=== PATIENT | female | born 1975 | race Caucasian/White ===

== ENCOUNTER 2018-08-23 23:30 | Emergency (ER) | payer MEDICAID, OTHER ==
[~2018-08-23] VITALS: Ht 165.1 cm; Wt 88.9 kg
[~2018-08-23 23:30] MED LIST: FOLIC ACID; VITAMINS
[2018-08-23 23:31] VITALS: BP 144/83
[2018-08-23] MEDS: DIPHENOXYLATE /ATROPINE 2.5 MG TAB PO ONE (23:53)
[2018-08-23 23:59] VITALS: BP 144/83
== END 2018-08-24 | disposition home or self-care (01) ==
LOC: MED 23:30
DX: B34.9 Viral infection, unspecified (principal); R19.7 Diarrhea, unspecified; M54.9 Dorsalgia, unspecified; N64.4 Mastodynia; Z79.899 Other long term (current) drug therapy
CPT/HCPCS: 99283

== ENCOUNTER 2019-04-05 02:18 | Emergency (ER) | payer MEDICAID, OTHER ==
[~2019-04-05] VITALS: Ht 162.6 cm; Wt 84.8 kg
[2019-04-05 02:28] VITALS: BP 133/80
--- NOTE | 2019-04-05 02:33 | NUR ---
PT AMBULATED TO BED 7.
--- NOTE | 2019-04-05 02:40 | NUR ---
43 YO F BIB SELF C/O POSSIBLE BUG BITE TO RIGHT POSTERIOR THIGH. PT STATES SHE SQUEEZED THE SITE AND IT OOZED GREEN PUS. SITE APPEARS RED, SLIGHTLY EDEMATOUS WITH BLACK CENTER. NO DRAINAGE OR BLEEDING NOTED AT THIS TIME. PT DENIES FEVER, NVD. PT IS ALSO C/O MIJARES. PMH-- DENIES
--- NOTE | 2019-04-05 03:30 | NUR ---
Patient appears to be resting comfortably in bed. Vital Signs within normal limits. Respirations even and unlabored.
--- NOTE | 2019-04-05 04:42 | NUR ---
DR. CLEMONS EVALUATING AT BEDSIDE.
[2019-04-05] MEDS ORDERED: KETOROLAC 60 MG/2 ML VIAL IM ONE (04:50)
[2019-04-05 05:36] VITALS: BP 127/79
--- NOTE | 2019-04-05 05:36 | NUR ---
Patient discharged with v/s stable. Written and verbal after care instructions given and explained. Patient alert, oriented and verbalized understanding of instructions. Ambulatory with steady gait. All questions addressed prior to discharge. ID band removed. Patient advised to follow up with PMD. Rx of KEFLEX, MOTRIN, PREDNISONE given. Patient educated on indication of medication including possible reaction and side effects. Opportunity to ask questions provided and answered.
== END 2019-04-05 05:36 | disposition home or self-care (01) ==
LOC: MED 02:18
DX: L02.31 Cutaneous abscess of buttock (principal); L03.317 Cellulitis of buttock; Z79.899 Other long term (current) drug therapy
CPT/HCPCS: 96372; 99283; J1885

== ENCOUNTER 2020-09-30 13:13 | Emergency (ER) | payer OTHER ==
[~2020-09-30] VITALS: Ht 160 cm; Wt 88.0 kg
[2020-09-30 13:34] VITALS: BP 134/82
[2020-09-30 17:49] VITALS: BP 134/82
--- NOTE | 2020-09-30 17:50 | NUR ---
Patient discharged with v/s stable. Written and verbal after care instructions given and explained. Patient alert, oriented and verbalized understanding of instructions. Ambulatory with steady gait. All questions addressed prior to discharge. ID band removed. Patient advised to follow up with PMD. Rx of Hydroxyzine 25mg given. Patient educated on indication of medication including possible reaction and side effects. Opportunity to ask questions provided and answered.
== END 2020-09-30 14:07 | disposition home or self-care (01) ==
LOC: MED 13:13
DX: F41.0 Panic disorder [episodic paroxysmal anxiety] (principal); Z79.899 Other long term (current) drug therapy
CPT/HCPCS: 99283

== ENCOUNTER 2021-07-13 10:15 | Emergency (ER) | payer OTHER ==
[~2021-07-13] VITALS: Ht 152.4 cm; Wt 91.6 kg
[2021-07-13 10:17] VITALS: BP 140/81
--- NOTE | 2021-07-13 10:23 | NUR ---
PT WAS TRIAGED AND RETURNED TO LOBBY. UNABLE TO PROVIDE URINE SAMPLE AT THIS TIME, GIVEN SAMPLE CUP.
--- NOTE | 2021-07-13 10:43 | NUR ---
PT AMBULATED TO BED 9 WITH EVEN AND STEADY GAIT. PT WAS CHANGED INTO GOWN.
--- NOTE | 2021-07-13 11:10 | NUR ---
45 y/o F BIB self from home c/o epigastric pain x 3 days. Patient A&Ox4, ambulatory, reports acute onset of pain that worsens after meals. Patient reports epigastric pain 6/10, "gas/bloating/constant," non-radiating pain. Patient states Pepto bismol without relief to symptoms. Denies nausea, vomiting, diarrhea, constipation, fever, chills, dysuria, back pain, headache, chest pain, SOB. Patient states last Pepto Bismol intake 3 days ago, has good appetite with food/fluids. Pt reports last bm this morning that is "black and tarry." Bowel sounds normoactive x 4 quadrants. Epigastric region soft/round/tender to palpation. Denies any other medications prior to arrival. UA collected. VSS; resiprations even/unlabored. PMH/Sx/Meds: C-sections NKA
[2021-07-13 11:12] LABS: BASOPHILS % (AUTO) 0.5 % (0.0-2.0); EOSINOPHILS # (AUTO) 0.2 K/uL (0-0.4); EOSINOPHILS % (AUTO) 1.9 % (0.0-4.0); HEMATOCRIT 38.7 % (36-48); HEMOGLOBIN 12.8 g/dL (12.0-16.0); LYMPHOCYTES # (AUTO) 2.9 K/uL (2.5-16.5); LYMPHOCYTES % (AUTO) 30.9 % (20.5-51.1); MEAN CORPUSCULAR HEMOGLOBIN 30 pg (27-31); MEAN CORPUSCULAR HGB CONC 33 g/dL (33-37); MEAN CORPUSCULAR VOLUME 89.9 fL (80-94); NEUTROPHILS # (AUTO) 5.4 K/uL (1.8-7.7); NEUTROPHILS % (AUTO) 56.7 % (42.2-75.2); PLATELET COUNT (AUTO) 408 K/uL (140-450); RED CELL DISTRIBUTION WIDTH 13.7 % (11.6-13.7); WHITE BLOOD COUNT (AUTO) 9.5 K/uL (4.8-10.8)
[2021-07-13 11:20] LABS: ANION GAP 13.3 (8-16); CARBON DIOXIDE 26.4 mmol/L (21-32); CREATININE 0.7 mg/dL (0.6-1.3); POTASSIUM 4.7 mmol/L (3.5-5.1)
--- NOTE | 2021-07-13 11:21 | NUR ---
DR ALANIS AT BEDSIDE EVALUATING PT
[2021-07-13 11:26] LABS: ALBUMIN 3.5 g/dL (3.4-5.0); TOTAL BILIRUBIN 0.2 mg/dL (0.0-1.0)
[2021-07-13] MEDS ORDERED: DICYCLOMINE HCL LIQUID 20 MG, ALUMINUM HYD/MAG/SIMETHICONE 30 ML, LIDOCAINE VISCOUS 2% ... PO ONE ×3 (11:30)
[2021-07-13] MEDS ORDERED: KETOROLAC 30 MG/ML VIAL IM ONE (11:30)
[2021-07-13] MEDS ORDERED: ALUMINUM HYD/MAG/SIMETHICONE 30 ML UDC ONE (11:34)
[2021-07-13] MEDS ORDERED: DICYCLOMINE HCL LIQUID 10 MG/5 ML UDC ONE (11:35)
--- NOTE | 2021-07-13 11:55 | NUR ---
ULTRASOUND AT BEDSIDE
[2021-07-13] MEDS ORDERED: MAG-27 PO (12:39)
[2021-07-13] MEDS ORDERED: NAPR-54 PO (12:39)
[2021-07-13 12:45] VITALS: BP 134/72
--- NOTE | 2021-07-13 12:48 | NUR ---
Patient discharged with v/s stable. Written and verbal after care instructions given and explained. Patient alert, oriented and verbalized understanding of instructions. Ambulatory with steady gait. All questions addressed prior to discharge. ID band removed. Patient advised to follow up with PMD. Rx of Mag Hydrox/Aluminum Hyd/Simeth, Naproxen given. Patient educated on indication of medication including possible reaction and side effects. Opportunity to ask questions provided and answered.
== END 2021-07-13 12:48 | disposition home or self-care (01) ==
LOC: MED 10:15
DX: K80.20 Calculus of gallbladder without cholecystitis without obstruction (principal); Z79.899 Other long term (current) drug therapy; Z98.890 Other specified postprocedural states
CPT/HCPCS: 36415; 76705; 80053; 81002; 81025; 83690; 85025; 96372; 99284; J1885; Q0092

== ENCOUNTER 2022-10-03 15:55 | Emergency (ER) | payer OTHER ==
[~2022-10-03] VITALS: Ht 167.6 cm; Wt 83.9 kg
[~2022-10-03 15:55] MED LIST changes: +MAG-27 PO; +NAPR-54 PO
[2022-10-03 16:10] VITALS: BP 141/81
[2022-10-03] MEDS ORDERED: DICYCLOMINE HCL LIQUID 20 MG, ALUMINUM HYD/MAG/SIMETHICONE 30 ML, LIDOCAINE VISCOUS 2% ... PO ONE ×3 (16:25)
[2022-10-03] MEDS ORDERED: METOCLOPRAMIDE 10 MG/2 ML INJ VIAL IM ONE (16:25)
[2022-10-03] MEDS ORDERED: ALUMINUM HYD/MAG/SIMETHICONE 30 ML UDC ONE (16:40)
[2022-10-03] MEDS ORDERED: DICYCLOMINE HCL LIQUID 10 MG/5 ML UDC ONE (16:40)
[2022-10-03] MEDS ORDERED: FAMO-92 PO (18:01)
== END 2022-10-03 18:10 | disposition home or self-care (01) ==
LOC: MED 15:55
DX: R10.13 Epigastric pain (principal)
CPT/HCPCS: 74018; 96372; 99283; J2765

== ENCOUNTER 2022-11-30 19:40 | Emergency (ER) | payer OTHER ==
[~2022-11-30] VITALS: Ht 152.4 cm; Wt 87.1 kg
[~2022-11-30 19:40] MED LIST changes: +FAMO-92 PO
[2022-11-30 19:48] VITALS: BP 135/75
--- NOTE | 2022-11-30 19:52 | NUR ---
PT TO BED 6
--- NOTE | 2022-11-30 20:33 | NUR ---
47YR OLD FEMALE BIB SELF C/O RASH L THUMB PAIN. 9/10 THROBBING PAIN LEVEL . +SWELLING TO L THUMB. DENIES KNOWN INJURY. RASH TO MENA HANDS UPPER ARMS ABD MENA THIGH. PT DENIES SOB OR CP. PT STATES HAVING ALLERGIES TO MULTIPLE ENIVORMENTAL THINGS. RESP EVEN AND UNLABORED. SKIN WARM AND DRY. NKDA NO MED HX
--- NOTE | 2022-11-30 20:36 | NUR ---
Dr. Frausto examining patient.
[2022-11-30] MEDS ORDERED: PRED20TA5 PO (20:41)
[2022-11-30] MEDS ORDERED: predniSONE 20 MG TAB ONE (20:53)
[2022-11-30] MEDS ORDERED: predniSONE 20 MG TAB PO ONE (20:55)
--- NOTE | 2022-11-30 20:55 | NUR ---
PT CLEARED FOR D/C. PROVIDED WITH D/C INSTRUCTIONS AND RX OF PREDNISONE. PT AMBULATORY TO PERSONAL VEHICLE
== END 2022-11-30 20:55 | disposition home or self-care (01) ==
LOC: MED 19:40
DX: M79.645 Pain in left finger(s) (principal); R21 Rash and other nonspecific skin eruption; E11.9 Type 2 diabetes mellitus without complications; Z79.4 Long term (current) use of insulin; Z79.899 Other long term (current) drug therapy
CPT/HCPCS: 73130; 99283; J7512; Q0092

== ENCOUNTER 2023-02-15 15:29 | Emergency (ER) | payer OTHER ==
[~2023-02-15] VITALS: Ht 157.5 cm; Wt 88.0 kg
[~2023-02-15 15:29] MED LIST changes: +PRED20TA5 PO
[2023-02-15 16:27] VITALS: BP 122/71
[2023-02-15 17:55] LABS: APPEARANCE,URINE CLEAR (CLEAR); BILIRUBIN,URINE NEGATIVE (NEGATIVE); BLOOD, URINE 1+ (NEGATIVE); COLOR,URINE YELLOW (YELLOW); LEUKOCYTE ESTERASE ,URINE NEGATIVE (NEGATIVE); NITRITE, URINE NEGATIVE (NEGATIVE); PH,URINE 6.5 (5.0-9.0); UGLUCOSE NEGATIVE (NEGATIVE)
[2023-02-15 18:06] LABS: RBC,URINE 0-5 /HPF (0-5)
--- NOTE | 2023-02-15 18:45 | NUR ---
PT. AMB. TO BED 11 WITH NO ACUTE DISTRESS.
--- NOTE | 2023-02-15 19:39 | NUR ---
MD Nolen at bedside examining pt.
[2023-02-15] MEDS ORDERED: IBUPROFEN 600 MG TAB PO ONE (20:05)
[2023-02-15] MEDS ORDERED: ACETAMINOPHEN EXTRA STRENGTH 500 MG TAB PO ONE (20:05)
[2023-02-15] MEDS ORDERED: IBUP-2213 PO (20:07)
[2023-02-15] MEDS ORDERED: ACET-10509 PO (20:07)
--- NOTE | 2023-02-15 20:13 | NUR ---
Pt discharged without discharge instruction paperwork, per pt request; pt gave verbal consent for discharge instructions.
[2023-02-15 20:26] VITALS: BP 125/76
== END 2023-02-15 20:13 | disposition home or self-care (01) ==
LOC: MED 15:29
DX: S16.1XXA Strain of muscle, fascia and tendon at neck level, initial encounter (principal); R51.9 Headache, unspecified; M62.838 Other muscle spasm; Z79.899 Other long term (current) drug therapy; X58.XXXA Exposure to other specified factors, initial encounter; Y93.89 Activity, other specified; Y92.89 Other specified places as the place of occurrence of the external cause; Y99.8 Other external cause status
CPT/HCPCS: 81001; 81025; 99283

== ENCOUNTER 2023-03-27 16:19 | Inpatient (IN) | payer OTHER ==
[~2023-03-27] VITALS: Ht 152.4 cm; Wt 80.7 kg
[~2023-03-27 16:19] MED LIST changes: +ACET-10509 PO; +IBUP-2213 PO
[2023-03-27 16:54] VITALS: BP 148/82; PULSE 78; RESP 18; TEMP 98; O2SAT 98
[2023-03-27] MEDS ORDERED: fentaNYL citrate 0.05 MG/ML - 50mL vial IV ONE (18:00)
[2023-03-27] MEDS ORDERED: PROPOFOL 200 MG/20 ML VIAL IV ONE (18:00)
[2023-03-27] MEDS ORDERED: GLYCOPYRROLATE 0.2 MG/ML VIAL ONE (18:00)
[2023-03-27] MEDS ORDERED: DESFLURANE 240 ML BTL INH ONE (18:00)
[2023-03-27] MEDS ORDERED: ONDANSETRON 4 MG/2 ML VIAL ONE (18:00)
[2023-03-27] MEDS ORDERED: HYDROmorphone PFS 2 MG/ML SYR ONE (18:00)
[2023-03-27] MEDS ORDERED: SUCCINYLCHOLINE CHLORIDE 200 MG/10 ML VIAL IVP ONE (18:00)
[2023-03-27] MEDS ORDERED: KETOROLAC 30 MG/ML VIAL ONE (18:00)
[2023-03-27] MEDS ORDERED: ROCURONIUM 50 MG/5 ML VIAL IV ONE (18:00)
[2023-03-27 18:42] LABS: BASOPHILS # (AUTO) 0.1 K/uL (0.00-0.22); BASOPHILS % (AUTO) 0.8 % (0.0-2.0); EOSINOPHILS # (AUTO) 0.2 K/uL (0-0.4); EOSINOPHILS % (AUTO) 1.4 % (0.0-4.0); HEMATOCRIT 35.7 % (36-48); HEMOGLOBIN 12.1 g/dL (12.0-16.0); LYMPHOCYTES # (AUTO) 4.1 K/uL (2.5-16.5); LYMPHOCYTES % (AUTO) 29.1 % (20.5-51.1); MEAN CORPUSCULAR HEMOGLOBIN 29 pg (27-31); MEAN CORPUSCULAR HGB CONC 34 g/dL (33-37); MEAN CORPUSCULAR VOLUME 86.4 fL (80-94); MONOCYTES # (AUTO) 1.1 K/uL (0.8-1.0); MONOCYTES % (AUTO) 7.7 % (1.7-9.3); NEUTROPHILS # (AUTO) 8.5 K/uL (1.8-7.7); PLATELET COUNT (AUTO) 397 K/uL (140-450); RED BLOOD CELL COUNT(AUTO) 4.13 MIL/uL (4.20-5.40); RED CELL DISTRIBUTION WIDTH 13.3 % (11.6-13.7); WHITE BLOOD COUNT (AUTO) 13.9 K/uL (4.8-10.8)
[2023-03-27 18:58] LABS: ALBUMIN 3.7 g/dL (3.4-5.0); ANION GAP 11.3 (8-16); CARBON DIOXIDE 29.9 mmol/L (21-32); CREATININE 0.7 mg/dL (0.6-1.3); POTASSIUM 4.2 mmol/L (3.5-5.1); TOTAL BILIRUBIN 0.2 mg/dL (0.0-1.0)
--- NOTE | 2023-03-27 19:14 | NUR ---
PT TO 3
[2023-03-27] MEDS ORDERED: KETOROLAC 60 MG/2 ML VIAL IM ONE (20:05)
--- NOTE | 2023-03-27 20:10 | NUR ---
PT WENT TO THE RESTROOM.
--- NOTE | 2023-03-27 20:14 | NUR ---
PT WENT TO CT
--- NOTE | 2023-03-27 21:26 | NUR ---
[employer] UNDERWRITER FROM PT ENSURANCE CALLED AND FORMATION WAS PROVIDED.
[2023-03-27] MEDS ORDERED: cefTRIAXone 2,000 MG in DEXTROSE 5% 100 ML IV ONE (22:00)
[2023-03-27] MEDS: NACL 0.9% 1,000 ML IV SCH (22:10)
[2023-03-27] MEDS ORDERED: LORazepam 2 MG/ML VIAL IVP PRN (22:10)
[2023-03-27] MEDS ORDERED: MORPHINE SULFATE 2 MG/ML SYR IVP PRN (22:10)
[2023-03-27 23:11] LABS: PROTHROMBIN TIME 10.3 secs (10.8-13.4)
[2023-03-27] MEDS ORDERED: cefTRIAXone 1,000 MG VIAL ONE (23:19)
[2023-03-27] MEDS ORDERED: cefTRIAXone 2,000 MG VIAL ONE (23:24)
[2023-03-27 23:35] VITALS: BP 118/60; PULSE 67; RESP 18; TEMP 98.3; O2SAT 97
--- NOTE | 2023-03-27 23:35 | NUR ---
received pt from er / wheelchair , aaox4 , denies pain at this time , iv site intact and patent , walks to bed , further admission assessment will be done , ensure safety at all time , reminds npo , will cont. to monitor .
--- NOTE | 2023-03-28 00:21 | NUR ---
Patient will be admitted to care of [facility]. Admited to [facility]. Will go to [id number]. Belongings list completed. Report to REGGIE Salvador.
[2023-03-28 04:00] VITALS: BP 115/60; PULSE 68; RESP 18; TEMP 98.7; O2SAT 98
--- NOTE | 2023-03-28 04:00 | NUR ---
sleeping , chest rise and fall equally .call light within reach .
[2023-03-28] MEDS: metroNIDAZOLE 500 MG/NS PREMIX 100 ML IV SCH ×3 (05:28→23:19)
--- NOTE | 2023-03-28 06:00 | NUR ---
rounds , no complain made , call light within reach .
--- NOTE | 2023-03-28 07:39 | NUR ---
endorsed pt for cont. of care .
[2023-03-28 08:00] VITALS: BP 113/65; PULSE 67; RESP 17; RESP 18; TEMP 97.6; O2SAT 98
[2023-03-28] MEDS: NACL 0.9% 1,000 ML IV SCH (08:10)
[2023-03-28 08:42] LABS: BASOPHILS # (AUTO) 0.2 K/uL (0.00-0.22); BASOPHILS % (AUTO) 1.2 % (0.0-2.0); EOSINOPHILS # (AUTO) 0.2 K/uL (0-0.4); EOSINOPHILS % (AUTO) 1.9 % (0.0-4.0); HEMATOCRIT 33.4 % (36-48); HEMOGLOBIN 11.5 g/dL (12.0-16.0); LYMPHOCYTES # (AUTO) 4.5 K/uL (2.5-16.5); LYMPHOCYTES % (AUTO) 35.1 % (20.5-51.1); MEAN CORPUSCULAR HEMOGLOBIN 30 pg (27-31); MEAN CORPUSCULAR HGB CONC 35 g/dL (33-37); MEAN CORPUSCULAR VOLUME 85.7 fL (80-94); MONOCYTES # (AUTO) 0.9 K/uL (0.8-1.0); MONOCYTES % (AUTO) 7.2 % (1.7-9.3); NEUTROPHILS % (AUTO) 54.6 % (42.2-75.2); PLATELET COUNT (AUTO) 372 K/uL (140-450); RED BLOOD CELL COUNT(AUTO) 3.89 MIL/uL (4.20-5.40); RED CELL DISTRIBUTION WIDTH 13.2 % (11.6-13.7); WHITE BLOOD COUNT (AUTO) 12.9 K/uL (4.8-10.8)
[2023-03-28] MEDS ORDERED: NON-FORMULARY ITEM (Famotidine* (Pepcid*) 40 MG) PO SCH (09:00)
[2023-03-28 09:07] LABS: ALBUMIN 3.2 g/dL (3.4-5.0); ANION GAP 11.5 (8-16); CARBON DIOXIDE 29.4 mmol/L (21-32); CREATININE 0.7 mg/dL (0.6-1.3); POTASSIUM 3.9 mmol/L (3.5-5.1); TOTAL BILIRUBIN 0.2 mg/dL (0.0-1.0)
--- NOTE | 2023-03-28 09:22 | NUR ---
PATIENT HAS BEEN SCREENED AND CATEGORIZED LOW NUTRITION RISK. PATIENT WILL BE SEEN WITHIN 7 DAYS OF ADMISSION. 03/27/23-04/03/[address]
[2023-03-28] MEDS: FAMOTIDINE 20 MG TAB PO SCH (12:00)
[2023-03-28] MEDS ORDERED: BUPIVACAINE-MPF 0.25% 30 ML VIAL INJ ONE (16:20)
[2023-03-28] MEDS ORDERED: LIDOCAINE/EPI MPF 1%1:200000 30 ML VIAL INJ ONE (16:20)
--- NOTE | 2023-03-28 17:30 | NUR ---
PT PICKED UP BY OR. URINE SAMPLE COLLECTED FOR TESTING. HIDA SCAN CANCELLED PER MD ORDERS. PT STABLE UPON TRANSFER (VIA GURNEY). NO FURTHER NEEDS ARE TO BE MET AT THIS TIME.
[2023-03-28] MEDS ORDERED: ONDANSETRON 4 MG/2 ML VIAL IVP PRN (17:35)
[2023-03-28] MEDS ORDERED: fentaNYL citrate 0.05 MG/ML VIAL ONE (18:24)
[2023-03-28] MEDS ORDERED: PROPOFOL 200 MG/20 ML VIAL IV ONE (18:39)
[2023-03-28] MEDS ORDERED: ROCURONIUM 50 MG/5 ML VIAL IV ONE (18:39)
[2023-03-28] MEDS ORDERED: SUCCINYLCHOLINE CHLORIDE 200 MG/10 ML VIAL IVP ONE (18:39)
[2023-03-28] MEDS ORDERED: KETOROLAC 30 MG/ML VIAL ONE (18:39)
[2023-03-28] MEDS ORDERED: ONDANSETRON 4 MG/2 ML VIAL ONE (18:39)
[2023-03-28] MEDS ORDERED: HYDROmorphone PFS 2 MG/ML SYR ONE (18:40)
[2023-03-28] MEDS ORDERED: NEOSTIGMINE 1:1000 10 MG/10 ML VIAL ONE (19:32)
[2023-03-28] MEDS ORDERED: GLYCOPYRROLATE 0.2 MG/ML VIAL ONE ×2 (19:33)
[2023-03-28] MEDS: HYDROmorphone 1 MG/ML AMP IVP PRN ×2 (19:58→20:08)
[2023-03-28 20:00] VITALS: PULSE 78
[2023-03-28 20:40] VITALS: BP 121/69; PULSE 78; RESP 18; TEMP 97; O2SAT 92
--- NOTE | 2023-03-28 20:40 | NUR ---
PT RETURNED FROM SURGERY ON AWAKE AND ALERT. PT ABLE TO VERBALIZED NEEDS. VITAL SIGNS CHECKED: B/P121/69; P78; T97.0; O2 SAT92% ROOM AIR; R17. INCISION OF SURGERY ARE CLEAN AND DRY, OPEN TO THE AIR. NO NOTED ANY REDNESS OR SWELLING.
[2023-03-28] MEDS: ONDANSETRON 4 MG/2 ML VIAL IVP PRN (21:56)
--- NOTE | 2023-03-28 21:56 | NUR ---
PT COMPLAINTS OF NAUSEA, PT NOTED GAGGING. ZOFRAN ADMINISTERED ORDERED.
[2023-03-28] MEDS: HYDROmorphone PFS 2 MG/ML SYR IVP PRN (22:00)
--- NOTE | 2023-03-28 22:00 | NUR ---
PT COMPLAINTS OF SEVERE PAIN ON ABDOMEN OF SURGERY SITES. DILAUDID 2MG ADMINISTERED ORDERED.
--- NOTE | 2023-03-28 23:00 | NUR ---
REASSESSMENT OF PAIN, PT DENIES ABDOMINAL PAIN.
--- NOTE | 2023-03-28 23:15 | NUR ---
PT COMPLAINTS OF LEFT CHEST PAIN. PT ALSO COMPLAINTS OF DIZZINESS AND BOTH EYES PAIN WHEN SEES LIGHT. COOLING MEASURES ON FOREHEAD GIVEN. REPORTED TO DR. REYNOLDS.
[2023-03-28] MEDS ORDERED: cefTRIAXone 1,000 MG VIAL ONE (23:39)
--- NOTE | 2023-03-28 23:44 | NUR ---
PT IS AGITATED AND VERBALIZED OF ANXIETY AFTER SURGERY, ATIVAN ADMINISTERED ORDERED.
--- NOTE | 2023-03-29 00:10 | NUR ---
RECEIVED ORDER FROM DR. REYNOLDS TO DO ECG AND TROPONIN LEVEL. ORDER CARRY OUT.
--- NOTE | 2023-03-29 01:05 | NUR ---
PT IS SLEEPING WELL, VITALS CHECKED = BP105/60; P88; R16; T96.5; O2 SAT98%. NO SOB OR DISTRESS, NO FACIAL GRIMACING.
[2023-03-29 04:00] VITALS: BP 130/82; PULSE 78; RESP 18; TEMP 96.5; O2SAT 98
[2023-03-29] MEDS: NACL 0.9% 1,000 ML IV SCH ×3 (04:10→14:10)
[2023-03-29] MEDS: metroNIDAZOLE 500 MG/NS PREMIX 100 ML IV SCH ×2 (05:01→12:36)
--- NOTE | 2023-03-29 07:05 | NUR ---
receive the patient from the shift production associate constantin Ricci in rm [id number] aox4 with admitting diagnosis cholecystitis afebrile , with iv on right antecubital running normal saline at 100 mls/hr . iv site patent and intact. no sign and symptoms of redness , infiltration status post laparoscopic cholecystectomy bola 3 . will continue to have antibiotic therapy . will continue to monitor
[2023-03-29 07:06] LABS: ANION GAP 12.2 (8-16); CARBON DIOXIDE 27.8 mmol/L (21-32); CREATININE 0.6 mg/dL (0.6-1.3); TOTAL BILIRUBIN 1.5 mg/dL (0.0-1.0)
[2023-03-29 07:12] LABS: BASOPHILS % (AUTO) 0.2 % (0.0-2.0); EOSINOPHILS % (AUTO) 0.1 % (0.0-4.0); HEMATOCRIT 34.9 % (36-48); HEMOGLOBIN 11.7 g/dL (12.0-16.0); LYMPHOCYTES # (AUTO) 1.5 K/uL (2.5-16.5); LYMPHOCYTES % (AUTO) 12.3 % (20.5-51.1); MEAN CORPUSCULAR HEMOGLOBIN 30 pg (27-31); MEAN CORPUSCULAR HGB CONC 34 g/dL (33-37); MEAN CORPUSCULAR VOLUME 88.4 fL (80-94); MONOCYTES % (AUTO) 8.1 % (1.7-9.3); NEUTROPHILS # (AUTO) 9.9 K/uL (1.8-7.7); NEUTROPHILS % (AUTO) 79.3 % (42.2-75.2); PLATELET COUNT (AUTO) 361 K/uL (140-450); RED BLOOD CELL COUNT(AUTO) 3.94 MIL/uL (4.20-5.40); RED CELL DISTRIBUTION WIDTH 13.3 % (11.6-13.7); WHITE BLOOD COUNT (AUTO) 12.5 K/uL (4.8-10.8)
[2023-03-29 07:25] LABS: ALBUMIN 3.2 g/dL (3.4-5.0)
[2023-03-29 07:50] VITALS: PULSE 68; RESP 20; O2SAT 99
[2023-03-29 07:52] VITALS: PULSE 68; RESP 20; O2SAT 99
[2023-03-29 08:00] VITALS: BP 136/76; PULSE 73; RESP 18; TEMP 97.3; O2SAT 100
--- NOTE | 2023-03-29 08:15 | NUR ---
and 10 y/o son visited the patient . was allowed by supervisor melt house
[2023-03-29] MEDS: FAMOTIDINE 20 MG TAB PO SCH (08:40)
[2023-03-29] MEDS: HYDROmorphone PFS 2 MG/ML SYR IVP PRN (12:36)
[2023-03-29 16:00] VITALS: BP 142/81; PULSE 74; RESP 18; TEMP 97.1; O2SAT 98
[2023-03-29] MEDS: ONDANSETRON 4 MG/2 ML VIAL IVP PRN (16:19)
--- NOTE | 2023-03-29 19:30 | NUR ---
RECEIVED REPORT FROM DAY SHIFT NURSE BRIAN FOR CONTINUITY OF CARE. PATIENT IS A&O X4. PATIENT IS ON ROOM AIR, BREATHING IS NORMAL WITH SYMMETRICAL RISE AND FALL OF CHEST. IV IS A 20G RAC; RUNNING NS 100. PATIENT IS SITTING IN HIGH-FOWLERS POSITION. BED IS IN LOWEST POSITION, WHEELS LOCKED CALL LIGHT IN PLACE. WILL CONTINUE TO OBSERVE PATIENT.
[2023-03-29 20:00] VITALS: BP 136/79; PULSE 75; RESP 20; TEMP 98; O2SAT 98
--- NOTE | 2023-03-29 20:30 | NUR ---
PATIENT CALLED AND STATED HER IV WAS LEAKING. CHECKED PATIENT'S IV. IV HAD COME OUT OF PATIENT'S ARM. STOPPED IV, DRIED PATIENT'S ARM WITH SOME GAUZE, AND PLACED GAUZE OVER SITE WERE IV WAS. INFORMED PATIENT THAT WE WILL NEED TO PUT A NEW IV IN HER. PATIENT ACKNOWLEDGED UNDERSTANDING.
[2023-03-29] MEDS: HYDROcodone/APAP 5/325 MG 1 TAB TAB PO PRN (22:06)
--- NOTE | 2023-03-29 23:30 | NUR ---
PATIENT CALLED AND REPORTED 8/10 PAIN. CHECKED PATIENT'S VITALS AND CHART AND SAW NORCO WAS APPROPRIATE TO ADMINISTER. MEDICATION WAS SUCCESSFULLY ADMINISTERED WITH NO ISSUE WITH SWALLOWING. NEW IV WAS SUCCESSFULLY PLACE BY NESHA MURILLO AT 2250. NEW IV IS 20G RAC. ADMINISTERED 2210 IVPB TO PATIENT. MEDICATION ADMINISTERED SUCCESSFULLY WITH NO ISSUE WITH IV. WENT INTO PATIENT'S ROOM TO REASSESS PATIENT'S PAIN AT 2328. PATIENT WAS SLEEPING. BREATHING WAS NORMAL WITH SYMMETRICAL RISE AND FALL OF CHEST. WILL CONTINUE TO OBSERVE PATIENT.
[2023-03-30] MEDS: NACL 0.9% 1,000 ML IV SCH ×2 (00:10→01:33)
--- NOTE | 2023-03-30 01:30 | NUR ---
LOOKED IN ON PATIENT. PATIENT WAS SLEEPING, BREATHING WAS NORMAL WITH SYMMETRICAL RISE AND FALL OF CHEST. IV IS RUNNING. WILL CONTINUE TO OBSERVE PATIENT.
[2023-03-30 04:00] VITALS: BP 134/80; PULSE 76; RESP 18; TEMP 97.2; O2SAT 99
--- NOTE | 2023-03-30 05:00 | NUR ---
LOOKED IN ON PATIENT. PATIENT WAS SLEEPING, BREATHING WAS NORMAL WITH SYMMETRICAL RISE AND FALL OF CHEST. IV IS RUNNING. WILL CONTINUE TO OBSERVE PATIENT.
[2023-03-30 06:36] LABS: BASOPHILS # (AUTO) 0.1 K/uL (0.00-0.22); BASOPHILS % (AUTO) 0.5 % (0.0-2.0); EOSINOPHILS # (AUTO) 0.1 K/uL (0-0.4); EOSINOPHILS % (AUTO) 0.9 % (0.0-4.0); HEMOGLOBIN 11.4 g/dL (12.0-16.0); LYMPHOCYTES # (AUTO) 3.3 K/uL (2.5-16.5); LYMPHOCYTES % (AUTO) 28.1 % (20.5-51.1); MEAN CORPUSCULAR HEMOGLOBIN 30 pg (27-31); MEAN CORPUSCULAR HGB CONC 34 g/dL (33-37); MEAN CORPUSCULAR VOLUME 88.2 fL (80-94); MONOCYTES % (AUTO) 8.7 % (1.7-9.3); NEUTROPHILS # (AUTO) 7.2 K/uL (1.8-7.7); NEUTROPHILS % (AUTO) 61.8 % (42.2-75.2); PLATELET COUNT (AUTO) 351 K/uL (140-450); RED BLOOD CELL COUNT(AUTO) 3.85 MIL/uL (4.20-5.40); RED CELL DISTRIBUTION WIDTH 13.4 % (11.6-13.7); WHITE BLOOD COUNT (AUTO) 11.6 K/uL (4.8-10.8)
[2023-03-30 06:49] LABS: ANION GAP 10.3 (8-16); CARBON DIOXIDE 30.2 mmol/L (21-32); CREATININE 0.6 mg/dL (0.6-1.3); POTASSIUM 3.5 mmol/L (3.5-5.1); TOTAL BILIRUBIN 0.3 mg/dL (0.0-1.0)
[2023-03-30 07:37] VITALS: PULSE 75; RESP 19; O2SAT 99
[2023-03-30 07:39] VITALS: PULSE 68; RESP 19; O2SAT 99
--- NOTE | 2023-03-30 07:50 | NUR ---
ENDORSED TO DAY SHIFT NURSE BRIAN FOR CONTINUITY OF CARE. PATIENT IS STABLE.
[2023-03-30] MEDS ORDERED: ACETAMINOPHEN 325 MG TAB PO PRN (07:55)
[2023-03-30] MEDS ORDERED: IBUPROFEN 800 MG TAB PO PRN (07:55)
[2023-03-30 08:00] VITALS: BP 130/79; PULSE 76; RESP 18; TEMP 98.4; O2SAT 96
[2023-03-30] MEDS ORDERED: LIDOCAINE 5% 1 EA PATCH TP SCH (09:00)
[2023-03-30] MEDS ORDERED: ENOXAPARIN 40 MG/0.4 ML SYR SUBQ SCH ×2 (09:00)
[2023-03-30] MEDS: CYCLOBENZAPRINE 10 MG TAB PO SCH ×3 (09:25→16:37)
[2023-03-30] MEDS: FAMOTIDINE 20 MG TAB PO SCH (09:27)
[2023-03-30 16:00] VITALS: BP 135/85; PULSE 80; RESP 18; TEMP 98.4; O2SAT 98
[2023-03-30] MEDS: HYDROcodone/APAP 5/325 MG 1 TAB TAB PO PRN (16:38)
[2023-03-30] MEDS ORDERED: MECLIZINE 25 MG TAB PO PRN (17:30)
[2023-03-30] MEDS ORDERED: MECL-231 PO (17:34)
[2023-03-30] MEDS ORDERED: FAMO20TA13 PO (17:34)
[2023-03-30] MEDS ORDERED: IBUP-2217 PO (17:34)
[2023-03-30] MEDS ORDERED: ACET-9525 PO ×2 (17:34→18:23)
[2023-03-30] MEDS ORDERED: CYCL-657 PO (17:34)
[2023-03-30 18:54] VITALS: BP 140/90; PULSE 68; RESP 20; TEMP 98
[2023-03-30] MEDS ORDERED: HYDR-5191 PO (19:36)
== END 2023-03-30 19:40 | disposition home or self-care (01) | DRG 263 ==
LOC: MED 16:19 → MMU 22:28 → OBSVTOIN 22:28 → MTU 23:28
PROVIDERS: ADMIT Student in an Organized Health Care Education/Training Program; ATTEND Student in an Organized Health Care Education/Training Program
PROC: 0FT44ZZ Resection of Gallbladder, Percutaneous Endoscopic Approach (ICD-10-PCS; principal; 2023-03-28 17:30)
DX: K80.00 Calculus of gallbladder with acute cholecystitis without obstruction (principal); E44.1 Mild protein-calorie malnutrition; R16.0 Hepatomegaly, not elsewhere classified; E66.9 Obesity, unspecified; Z71.3 Dietary counseling and surveillance; Z79.899 Other long term (current) drug therapy; Z90.710 Acquired absence of both cervix and uterus; Z79.1 Long term (current) use of non-steroidal anti-inflammatories (NSAID); Z68.34 Body mass index [BMI] 34.0-34.9, adult
CPT/HCPCS: 36415; 76705; 80053; 81025; 82374; 83690; 84484; 85025; 85610; 86886; 86900; 86901; 87081; 88304; 93005; 96365; 96372; 99285; J0330; J0696; J1170; J1650; J1885; J2001; J2060; J2405; J2704; J2710; J3010; J3490; J7030; J7060; J7120; J8597; Q0092

== ENCOUNTER 2023-06-24 00:15 | Emergency (ER) | payer OTHER ==
[~2023-06-24] VITALS: Ht 152.4 cm; Wt 81.6 kg
[~2023-06-24 00:15] MED LIST changes: -ACET-10509 PO; +CYCL-657 PO; -FAMO-92 PO; +FAMO20TA13 PO; -FOLIC ACID; +HYDR-5191 PO; -IBUP-2213 PO; +IBUP-2217 PO; -MAG-27 PO; +MECL-231 PO; -NAPR-54 PO; -PRED20TA5 PO; -VITAMINS
[2023-06-24 00:20] VITALS: BP 131/81; PULSE 74; RESP 16; TEMP 98; O2SAT 100
[2023-06-24 00:58] LABS: APPEARANCE,URINE CLEAR (CLEAR); BILIRUBIN,URINE NEGATIVE (NEGATIVE); BLOOD, URINE 2+ (NEGATIVE); COLOR,URINE YELLOW (YELLOW); LEUKOCYTE ESTERASE ,URINE TRACE (NEGATIVE); NITRITE, URINE NEGATIVE (NEGATIVE); PROTEIN,URINE NEGATIVE (NEGATIVE); UGLUCOSE NEGATIVE (NEGATIVE); UROBILINOGEN,URINE 0.2 EU/dL (0.2 - 1)
[2023-06-24 01:10] LABS: BACTERIA,URINE 10-30 (MOD) /HPF (None Seen); MUCUS,URINE 1+ /LPF (None Seen); SQUAMOUS EPITHELIAL CELL,UR 4-10 (MOD) /LPF (0-3 (FEW))
[2023-06-24 01:22] LABS: ALBUMIN 3.4 g/dL (3.4-5.0); ANION GAP 11.1 (8-16); CALCIUM 8.9 mg/dL (8.5-10.1); CARBON DIOXIDE 28.6 mmol/L (21-32); CREATININE 0.7 mg/dL (0.6-1.3); POTASSIUM 3.7 mmol/L (3.5-5.1); TOTAL BILIRUBIN 0.1 mg/dL (0.0-1.0); TOTAL PROTEIN, SERUM 7.6 g/dL (6.4-8.2)
[2023-06-24] MEDS ORDERED: KETOROLAC 30 MG/ML VIAL IVP ONE (01:30)
[2023-06-24 01:41] LABS: BASOPHILS # (AUTO) 0.1 K/uL (0.00-0.22); BASOPHILS % (AUTO) 0.7 % (0.0-2.0); EOSINOPHILS # (AUTO) 0.2 K/uL (0-0.4); EOSINOPHILS % (AUTO) 1.4 % (0.0-4.0); HEMATOCRIT 36.1 % (36-48); HEMOGLOBIN 11.8 g/dL (12.0-16.0); LYMPHOCYTES # (AUTO) 5.8 K/uL (2.5-16.5); LYMPHOCYTES % (AUTO) 39.4 % (20.5-51.1); MEAN CORPUSCULAR HEMOGLOBIN 29 pg (27-31); MEAN CORPUSCULAR HGB CONC 33 g/dL (33-37); MEAN CORPUSCULAR VOLUME 89.4 fL (80-94); MONOCYTES # (AUTO) 1.1 K/uL (0.8-1.0); MONOCYTES % (AUTO) 7.7 % (1.7-9.3); NEUTROPHILS # (AUTO) 7.4 K/uL (1.8-7.7); NEUTROPHILS % (AUTO) 50.8 % (42.2-75.2); PLATELET COUNT (AUTO) 401 K/uL (140-450); RED BLOOD CELL COUNT(AUTO) 4.04 MIL/uL (4.20-5.40); RED CELL DISTRIBUTION WIDTH 13.3 % (11.6-13.7); WHITE BLOOD COUNT (AUTO) 14.7 K/uL (4.8-10.8)
[2023-06-24 04:15] VITALS: O2SAT 100
[2023-06-24 06:06] VITALS: BP 131/81; PULSE 74; RESP 16; TEMP 98; O2SAT 100
[2023-06-24] MEDS ORDERED: IBUP-2213 PO (06:19)
[2023-06-24] MEDS ORDERED: CEPH-588 PO (06:19)
== END 2023-06-24 06:32 | disposition home or self-care (01) ==
LOC: MED 00:15
DX: N39.0 Urinary tract infection, site not specified (principal); R11.2 Nausea with vomiting, unspecified; Z90.49 Acquired absence of other specified parts of digestive tract; Z79.899 Other long term (current) drug therapy; Z98.890 Other specified postprocedural states
CPT/HCPCS: 36415; 74177; 80053; 81001; 81025; 83690; 85025; 87086; 96374; 99285; J1885; Q9967

== ENCOUNTER 2023-08-12 14:43 | Emergency (ER) | payer OTHER ==
[~2023-08-12] VITALS: Ht 152.4 cm; Wt 87.1 kg
[~2023-08-12 14:43] MED LIST changes: +CEPH-588 PO; +IBUP-2213 PO
[2023-08-12 14:50] VITALS: BP 133/62; PULSE 81; RESP 15; TEMP 97.9
[2023-08-12 16:24] LABS: BASOPHILS # (AUTO) 0.1 K/uL (0.00-0.22); BASOPHILS % (AUTO) 0.6 % (0.0-2.0); EOSINOPHILS # (AUTO) 0.1 K/uL (0-0.4); EOSINOPHILS % (AUTO) 1.1 % (0.0-4.0); HEMOGLOBIN 12.5 g/dL (12.0-16.0); LYMPHOCYTES # (AUTO) 4.3 K/uL (2.5-16.5); LYMPHOCYTES % (AUTO) 34.7 % (20.5-51.1); MEAN CORPUSCULAR HEMOGLOBIN 30 pg (27-31); MEAN CORPUSCULAR HGB CONC 33 g/dL (33-37); MEAN CORPUSCULAR VOLUME 89.5 fL (80-94); MONOCYTES % (AUTO) 8.3 % (1.7-9.3); NEUTROPHILS # (AUTO) 6.9 K/uL (1.8-7.7); NEUTROPHILS % (AUTO) 55.3 % (42.2-75.2); PLATELET COUNT (AUTO) 434 K/uL (140-450); RED BLOOD CELL COUNT(AUTO) 4.24 MIL/uL (4.20-5.40); RED CELL DISTRIBUTION WIDTH 13.6 % (11.6-13.7); WHITE BLOOD COUNT (AUTO) 12.5 K/uL (4.8-10.8)
[2023-08-12 16:32] LABS: ANION GAP 10.3 (8-16); CALCIUM 8.5 mg/dL (8.5-10.1); CREATININE 0.8 mg/dL (0.6-1.3); POTASSIUM 4.3 mmol/L (3.5-5.1)
[2023-08-12 17:31] LABS: APPEARANCE,URINE CLEAR (CLEAR); BILIRUBIN,URINE NEGATIVE (NEGATIVE); BLOOD, URINE 1+ (NEGATIVE); COLOR,URINE YELLOW (YELLOW); LEUKOCYTE ESTERASE ,URINE NEGATIVE (NEGATIVE); NITRITE, URINE NEGATIVE (NEGATIVE); PROTEIN,URINE NEGATIVE (NEGATIVE); UGLUCOSE NEGATIVE (NEGATIVE); UROBILINOGEN,URINE 0.2 EU/dL (0.2 - 1)
[2023-08-12 17:51] LABS: BACTERIA,URINE FEW /HPF (None Seen); SQUAMOUS EPITHELIAL CELL,UR 0-3 (FEW) /LPF (0-3 (FEW)); WBC,URINE 0-5 /HPF (0-5)
== END 2023-08-12 19:30 | disposition home or self-care (01) ==
LOC: MED 14:43
DX: R20.0 Anesthesia of skin (principal); R53.1 Weakness; Z79.899 Other long term (current) drug therapy
CPT/HCPCS: 36415; 80048; 81001; 85025; 93005; 99284

== ENCOUNTER 2023-09-16 11:33 | Emergency (ER) | payer MEDICAID, OTHER ==
[~2023-09-16] VITALS: Ht 152.4 cm; Wt 86.2 kg
[2023-09-16 12:05] VITALS: BP 122/77; PULSE 80; RESP 14; TEMP 98.7; O2SAT 95
[2023-09-16] MEDS ORDERED: ACETAMINOPHEN EXTRA STRENGTH 500 MG TAB PO ONE (12:40)
[2023-09-16] MEDS ORDERED: PSEUDOEPHEDRINE 30 MG TAB PO ONE (12:40)
[2023-09-16] MEDS ORDERED: KETOROLAC 30 MG/ML VIAL IM ONE (12:40)
[2023-09-16] MEDS ORDERED: DEXAMETHASONE 4 MG/ML VIAL PO ONE (12:40)
[2023-09-16 12:44] LABS: APPEARANCE,URINE CLEAR (CLEAR); BILIRUBIN,URINE NEGATIVE (NEGATIVE); BLOOD, URINE 1+ (NEGATIVE); COLOR,URINE YELLOW (YELLOW); LEUKOCYTE ESTERASE ,URINE NEGATIVE (NEGATIVE); NITRITE, URINE NEGATIVE (NEGATIVE); PROTEIN,URINE NEGATIVE (NEGATIVE); UGLUCOSE NEGATIVE (NEGATIVE); UROBILINOGEN,URINE 0.2 EU/dL (0.2 - 1)
[2023-09-16 12:56] LABS: BACTERIA,URINE FEW /HPF (None Seen); WBC,URINE 0-5 /HPF (0-5)
[2023-09-16 12:57] LABS: SQUAMOUS EPITHELIAL CELL,UR 0-3 (FEW) /LPF (0-3 (FEW))
[2023-09-16 15:25] LABS: FLU A ANTIGEN negative (NEGATIVE); FLU B ANTIGEN NEGATIVE (NEGATIVE)
== END 2023-09-16 14:22 | disposition home or self-care (01) ==
LOC: MED 11:33
DX: J06.9 Acute upper respiratory infection, unspecified (principal); Z20.822 Contact with and (suspected) exposure to COVID-19; Z79.899 Other long term (current) drug therapy
CPT/HCPCS: 71045; 81001; 81025; 96372; 99284; J1100; J1885

== ENCOUNTER 2023-11-18 09:34 | Emergency (ER) | payer MEDICAID, OTHER ==
[~2023-11-18] VITALS: Ht 154.9 cm; Wt 91.6 kg
[2023-11-18 09:39] VITALS: BP 124/64; PULSE 75; RESP 16; TEMP 98.3; O2SAT 98
[2023-11-18 10:19] VITALS: BP 122/64; PULSE 74; RESP 18; TEMP 98.2; O2SAT 98
[2023-11-18] MEDS ORDERED: IBUP-2213 PO (11:35)
[2023-11-18] MEDS ORDERED: OMEP40EC23 PO (11:35)
== END 2023-11-18 11:40 | disposition home or self-care (01) ==
LOC: MED 09:34
DX: R10.11 Right upper quadrant pain (principal); R35.0 Frequency of micturition; Z86.39 Personal history of other endocrine, nutritional and metabolic disease; Z90.49 Acquired absence of other specified parts of digestive tract; Z79.899 Other long term (current) drug therapy
CPT/HCPCS: 81002; 81025; 99283

== ENCOUNTER 2023-11-29 09:04 | Emergency (ER) | payer OTHER ==
[~2023-11-29] VITALS: Ht 152.4 cm; Wt 90.7 kg
[~2023-11-29 09:04] MED LIST changes: +OMEP40EC23 PO
[2023-11-29 09:19] VITALS: BP 117/73; PULSE 68; RESP 20; TEMP 97.7; O2SAT 96
[2023-11-29] MEDS: ALUMINUM HYD/MAG/SIMETHICONE 30 ML UDC PO ONE (10:26)
[2023-11-29] MEDS: ONDANSETRON 4 MG ODT PO ONE (10:27)
[2023-11-29] MEDS: FAMOTIDINE 20 MG TAB PO ONE (10:27)
[2023-11-29 10:33] LABS: BILIRUBIN,URINE NEGATIVE (NEGATIVE); BLOOD, URINE 2+ (NEGATIVE); LEUKOCYTE ESTERASE ,URINE NEGATIVE (NEGATIVE); NITRITE, URINE NEGATIVE (NEGATIVE); PROTEIN,URINE NEGATIVE (NEGATIVE); UGLUCOSE NEGATIVE (NEGATIVE); UROBILINOGEN,URINE 0.2 EU/dL (0.2 - 1)
[2023-11-29 10:36] LABS: APPEARANCE,URINE SLIGHTLY HAZY (CLEAR); COLOR,URINE YELLOW (YELLOW)
[2023-11-29 10:43] LABS: WBC,URINE 0-5 /HPF (0-5)
[2023-11-29 10:44] LABS: BACTERIA,URINE OCCASSIONAL /HPF (None Seen); SQUAMOUS EPITHELIAL CELL,UR 4-10 (MOD) /LPF (0-3 (FEW))
[2023-11-29 10:54] LABS: BASOPHILS # (AUTO) 0.1 K/uL (0.00-0.22); BASOPHILS % (AUTO) 0.7 % (0.0-2.0); EOSINOPHILS # (AUTO) 0.1 K/uL (0-0.4); EOSINOPHILS % (AUTO) 1.2 % (0.0-4.0); HEMATOCRIT 38.4 % (36-48); LYMPHOCYTES # (AUTO) 3.1 K/uL (2.5-16.5); LYMPHOCYTES % (AUTO) 27.2 % (20.5-51.1); MEAN CORPUSCULAR HEMOGLOBIN 30 pg (27-31); MEAN CORPUSCULAR HGB CONC 34 g/dL (33-37); MEAN CORPUSCULAR VOLUME 89.7 fL (80-94); MONOCYTES # (AUTO) 0.8 K/uL (0.8-1.0); MONOCYTES % (AUTO) 6.7 % (1.7-9.3); NEUTROPHILS # (AUTO) 7.3 K/uL (1.8-7.7); NEUTROPHILS % (AUTO) 64.2 % (42.2-75.2); PLATELET COUNT (AUTO) 384 K/uL (140-450); RED BLOOD CELL COUNT(AUTO) 4.28 MIL/uL (4.20-5.40); RED CELL DISTRIBUTION WIDTH 14.5 % (11.6-13.7); WHITE BLOOD COUNT (AUTO) 11.3 K/uL (4.8-10.8)
[2023-11-29 11:12] LABS: ANION GAP 8.7 (8-16); CALCIUM 9.1 mg/dL (8.5-10.1); CARBON DIOXIDE 31.3 mmol/L (21-32); CREATININE 0.7 mg/dL (0.6-1.3)
[2023-11-29 11:16] LABS: ALBUMIN 3.4 g/dL (3.4-5.0); BILIRUBIN,DIRECT 0.1 mg/dL (0.0-0.3); TOTAL BILIRUBIN 0.2 mg/dL (0.0-1.0); TOTAL PROTEIN, SERUM 8.7 g/dL (6.4-8.2)
[2023-11-29] MEDS ORDERED: ONDA-188 PO (11:40)
[2023-11-29] MEDS ORDERED: FAMO-92 PO (11:40)
[2023-11-29 11:51] VITALS: BP 124/68; PULSE 79; RESP 18; TEMP 98.2; O2SAT 97
== END 2023-11-29 11:51 | disposition home or self-care (01) ==
LOC: MED 09:04
DX: K29.70 Gastritis, unspecified, without bleeding (principal); E03.9 Hypothyroidism, unspecified; Z79.899 Other long term (current) drug therapy
CPT/HCPCS: 36415; 80048; 80076; 81001; 81025; 83690; 85025; 99284; Q0162

== ENCOUNTER 2023-12-05 09:11 | Emergency (ER) | payer OTHER ==
[~2023-12-05] VITALS: Ht 152.4 cm; Wt 90.7 kg
[~2023-12-05 09:11] MED LIST changes: +FAMO-92 PO; +ONDA-188 PO
[2023-12-05 09:29] VITALS: BP 122/74; PULSE 79; RESP 18; TEMP 98.1; O2SAT 97
[2023-12-05 09:50] VITALS: O2SAT 97
[2023-12-05] MEDS: NACL 0.9% 1,000 ML IV SCH (10:06)
[2023-12-05] MEDS: ONDANSETRON 4 MG/2 ML VIAL IVP ONE (10:08)
[2023-12-05] MEDS: KETOROLAC 30 MG/ML VIAL IVP ONE (10:10)
[2023-12-05 10:27] LABS: BASOPHILS # (AUTO) 0.1 K/uL (0.00-0.22); BASOPHILS % (AUTO) 0.6 % (0.0-2.0); EOSINOPHILS # (AUTO) 0.1 K/uL (0-0.4); EOSINOPHILS % (AUTO) 1.3 % (0.0-4.0); HEMATOCRIT 38.6 % (36-48); HEMOGLOBIN 13.2 g/dL (12.0-16.0); LYMPHOCYTES # (AUTO) 3.6 K/uL (2.5-16.5); LYMPHOCYTES % (AUTO) 32.1 % (20.5-51.1); MEAN CORPUSCULAR HEMOGLOBIN 30 pg (27-31); MEAN CORPUSCULAR HGB CONC 34 g/dL (33-37); MEAN CORPUSCULAR VOLUME 88.8 fL (80-94); MONOCYTES # (AUTO) 0.8 K/uL (0.8-1.0); MONOCYTES % (AUTO) 7.2 % (1.7-9.3); NEUTROPHILS # (AUTO) 6.6 K/uL (1.8-7.7); NEUTROPHILS % (AUTO) 58.8 % (42.2-75.2); PLATELET COUNT (AUTO) 406 K/uL (140-450); RED BLOOD CELL COUNT(AUTO) 4.35 MIL/uL (4.20-5.40); RED CELL DISTRIBUTION WIDTH 14.4 % (11.6-13.7); WHITE BLOOD COUNT (AUTO) 11.1 K/uL (4.8-10.8)
[2023-12-05 10:31] LABS: BILIRUBIN,URINE NEGATIVE (NEGATIVE); COLOR,URINE YELLOW (YELLOW); LEUKOCYTE ESTERASE ,URINE NEGATIVE (NEGATIVE); NITRITE, URINE NEGATIVE (NEGATIVE); PROTEIN,URINE NEGATIVE (NEGATIVE); UGLUCOSE NEGATIVE (NEGATIVE); UROBILINOGEN,URINE 0.2 EU/dL (0.2 - 1)
[2023-12-05 10:39] LABS: ANION GAP 10.8 (8-16); CARBON DIOXIDE 30.8 mmol/L (21-32); CREATININE 0.6 mg/dL (0.6-1.3); POTASSIUM 3.6 mmol/L (3.5-5.1)
[2023-12-05 10:46] LABS: ALBUMIN 3.4 g/dL (3.4-5.0); BILIRUBIN,DIRECT 0.1 mg/dL (0.0-0.3); TOTAL BILIRUBIN 0.2 mg/dL (0.0-1.0); TOTAL PROTEIN, SERUM 8.9 g/dL (6.4-8.2)
[2023-12-05 10:50] LABS: APPEARANCE,URINE SLIGHTLY HAZY (CLEAR); BACTERIA,URINE FEW /HPF (None Seen); BLOOD, URINE 1+ (NEGATIVE); RBC,URINE 0-5 /HPF (0-5); SQUAMOUS EPITHELIAL CELL,UR 4-10 (MOD) /LPF (0-3 (FEW)); WBC,URINE 0-5 /HPF (0-5)
[2023-12-05 12:25] VITALS: BP 120/71; PULSE 82; RESP 18; TEMP 98.1; O2SAT 98
[2023-12-05] MEDS ORDERED: SUCR1SUS7 PO (12:38)
[2023-12-05] MEDS ORDERED: OMEP20EC11 PO (12:38)
== END 2023-12-05 14:22 | disposition home or self-care (01) ==
LOC: MED 09:11
DX: K29.70 Gastritis, unspecified, without bleeding (principal); H61.22 Impacted cerumen, left ear; Z86.39 Personal history of other endocrine, nutritional and metabolic disease; Z90.49 Acquired absence of other specified parts of digestive tract; Z79.899 Other long term (current) drug therapy
CPT/HCPCS: 36415; 74176; 80048; 80076; 81001; 81025; 82150; 83690; 85025; 96361; 96374; 96375; 99285; J1885; J2405; J7030

== ENCOUNTER 2024-07-21 19:35 | Emergency (ER) | payer OTHER ==
[~2024-07-21] VITALS: Ht 172.7 cm; Wt 81.6 kg
[~2024-07-21 19:35] MED LIST changes: +HYDR-5071 PO; -HYDR-5191 PO; +OMEP20EC11 PO; +SUCR1SUS7 PO
[2024-07-21 19:46] VITALS: BP 131/56; PULSE 73; RESP 18; TEMP 98.4; O2SAT 100
[2024-07-21 20:11] VITALS: O2SAT 98
[2024-07-21 20:45] LABS: BASOPHILS # (AUTO) 0.1 K/uL (0.00-0.22); EOSINOPHILS # (AUTO) 0.3 K/uL (0-0.4); EOSINOPHILS % (AUTO) 2.1 % (0.0-4.0); HEMATOCRIT 37.3 % (36-48); HEMOGLOBIN 12.4 g/dL (12.0-16.0); LYMPHOCYTES # (AUTO) 5.9 K/uL (2.5-16.5); LYMPHOCYTES % (AUTO) 41.3 % (20.5-51.1); MEAN CORPUSCULAR HEMOGLOBIN 30 pg (27-31); MEAN CORPUSCULAR HGB CONC 33 g/dL (33-37); MEAN CORPUSCULAR VOLUME 89.5 fL (80-94); MONOCYTES # (AUTO) 1.3 K/uL (0.8-1.0); MONOCYTES % (AUTO) 8.9 % (1.7-9.3); NEUTROPHILS # (AUTO) 6.7 K/uL (1.8-7.7); NEUTROPHILS % (AUTO) 46.7 % (42.2-75.2); PLATELET COUNT (AUTO) 410 K/uL (140-450); RED BLOOD CELL COUNT(AUTO) 4.17 MIL/uL (4.20-5.40); RED CELL DISTRIBUTION WIDTH 13.4 % (11.6-13.7); WHITE BLOOD COUNT (AUTO) 14.4 K/uL (4.8-10.8)
[2024-07-21 21:10] LABS: ANION GAP 9.4 (8-16); CALCIUM 8.7 mg/dL (8.5-10.1); CARBON DIOXIDE 30.5 mmol/L (21-32); CREATININE 0.8 mg/dL (0.6-1.3); POTASSIUM 3.9 mmol/L (3.5-5.1)
[2024-07-21 21:23] LABS: ALANINE AMINOTRANSFERASE 15 U/L (12-78); ALBUMIN 3.3 g/dL (3.4-5.0); ALKALINE PHOSPHATASE 93 U/L (50-136); ASPARTATE AMINOTRANSFERASE 13 U/L (15-37); TOTAL BILIRUBIN 0.1 mg/dL (0.0-1.0); TOTAL PROTEIN, SERUM 7.5 g/dL (6.4-8.2)
== END 2024-07-21 22:48 | disposition home or self-care (01) ==
LOC: MED 19:35
DX: R07.89 Other chest pain (principal); R20.0 Anesthesia of skin; R20.2 Paresthesia of skin; F41.9 Anxiety disorder, unspecified; E03.9 Hypothyroidism, unspecified; Z79.899 Other long term (current) drug therapy
CPT/HCPCS: 36415; 71045; 80048; 80076; 83880; 84484; 85025; 85379; 93005; 99285; Q0092